=== PATIENT | male | born 1985 | race Two or more races ===

== ENCOUNTER 2022-05-06 16:41 | Emergency (ER) | payer SELFPAY ==
[~2022-05-06] VITALS: Ht 157.5 cm; Wt 72.9 kg
[2022-05-06 19:18] VITALS: BP 124/71
[2022-05-06] MEDS ORDERED: KETOROLAC TROMETH 30 MG/ML 1ML VIAL IM ONE (20:45)
[2022-05-06] MEDS ORDERED: IBUP800T26 PO (20:54)
[2022-05-06] MEDS ORDERED: CYCL-837 PO (20:54)
== END 2022-05-06 21:46 | disposition home or self-care (01) ==
LOC: ER 16:41
DX: S33.5XXA Sprain of ligaments of lumbar spine, initial encounter (principal); X50.9XXA Other and unspecified overexertion or strenuous movements or postures, initial encounter; Y93.89 Activity, other specified; Y92.89 Other specified places as the place of occurrence of the external cause; Y99.8 Other external cause status
CPT/HCPCS: 72100; 96372; 99283; J1885

== ENCOUNTER 2022-12-22 17:52 | Emergency (ER) | payer MEDICAID, OTHER ==
[~2022-12-22] VITALS: Ht 157.5 cm; Wt 69.0 kg
[~2022-12-22 17:52] MED LIST: CYCL-837 PO; IBUP-1455 PO
[2022-12-22] MEDS ORDERED: IBUP-1456 PO (23:14)
[2022-12-22 23:42] VITALS: BP 117/65; PULSE 76; RESP 16; TEMP 98; O2SAT 97
== END 2022-12-22 23:45 | disposition home or self-care (01) ==
LOC: ER 17:52
DX: S46.911A Strain of unspecified muscle, fascia and tendon at shoulder and upper arm level, right arm, initial encounter (principal); F17.210 Nicotine dependence, cigarettes, uncomplicated; X50.0XXA Overexertion from strenuous movement or load, initial encounter; Y93.89 Activity, other specified; Y92.89 Other specified places as the place of occurrence of the external cause; Y99.8 Other external cause status
CPT/HCPCS: 73030